=== PATIENT | female | born 1985 | race Caucasian/White ===

== ENCOUNTER 2023-09-15 04:42 | Day surgery (SDC) | payer OTHER ==
[2023-09-08 13:48] VITALS: BMI 27.9
[2023-09-15 10:37] VITALS: RESP 18
[2023-09-15] MEDS ORDERED: PROPOFOL 40 ML ONE (12:20)
[2023-09-15] MEDS ORDERED: MIDAZOLAM HCL 2 MG/2 ML SINGLE DOSE VIAL ONE (12:20)
[2023-09-15] MEDS ORDERED: SUCCINYLCHOLINE CHLORIDE 200 MG/10 ML SYRINGE ONE (12:23)
[2023-09-15] MEDS: ceFAZolin SODIUM 1 GM VIAL IVPB ONE (12:48)
[2023-09-15] MEDS: LIDOCAINE HCL 2% (50ML VIAL) INF ONE (12:52)
[2023-09-15] MEDS ORDERED: ceFAZolin SODIUM 1 GM VIAL ONE (13:19)
[2023-09-15] MEDS ORDERED: KETOROLAC TROMETHAMINE 30 MG/1 ML VIAL ONE (13:19)
[2023-09-15] MEDS ORDERED: DEXAMETHASONE SOD PHOSPHATE 4 MG/1 ML VIAL ONE (13:19)
[2023-09-15] MEDS ORDERED: ONDANSETRON 4 MG/2 ML VIAL ONE (13:19)
[2023-09-15] MEDS ORDERED: LIDOCAINE HCL 2% (20ML MULTI-DOSE VIAL) ONE (13:34)
[2023-09-15 14:56] VITALS: BP 103/72; PULSE 67; TEMP 98.4
== END 2023-09-15 14:45 | disposition home or self-care (01) ==
LOC: JASU-SURG 04:42
PROVIDERS: ATTEND Obstetrics & Gynecology
PROC: 0UBG0ZZ Excision of Vagina, Open Approach (ICD-10-PCS; principal; 2023-09-15 12:30)
DX: N89.8 Other specified noninflammatory disorders of vagina (principal)
CPT/HCPCS: 81025; 87070; 87075; 87205; 88304-TC

== ENCOUNTER 2024-04-22 09:32 | Emergency (ER) | payer OTHER ==
[2024-04-22 09:40] VITALS: BP 113/81; PULSE 92; RESP 18; TEMP 97.7; BMI 24.1
[2024-04-22] MEDS ORDERED: ACETAMINOPHEN 500 MG TABLET (FP) ONE (11:17)
[2024-04-22] MEDS: ACETAMINOPHEN 500 MG TABLET (FP) PO ONE (11:26)
== END 2024-04-22 13:31 | disposition home or self-care (01) ==
LOC: JERFT 09:32
DX: N75.0 Cyst of Bartholin's gland (principal); R50.9 Fever, unspecified
CPT/HCPCS: 36415; 87491; 87591; 87661; 99283-25